=== PATIENT | female | born 1935 | race African-American/Black ===

== ENCOUNTER 2024-09-14 19:02 | Emergency (ER) | payer MEDICARE ==
[~2024-09-14] VITALS: Ht 167.6 cm; Wt 86.2 kg
[2024-09-14 19:04] VITALS: BP 158/78; PULSE 74; RESP 16; TEMP 97.8; O2SAT 98
[2024-09-14] MEDS ORDERED: NAPR-1704 PO (21:12)
[2024-09-15 00:04] VITALS: BP 133/70; PULSE 90; RESP 14; O2SAT 96
== END 2024-09-15 00:28 | disposition home or self-care (01) ==
LOC: MED 19:02
DX: S12.600A Unspecified displaced fracture of seventh cervical vertebra, initial encounter for closed fracture (principal); I10 Essential (primary) hypertension; E78.00 Pure hypercholesterolemia, unspecified; Z79.899 Other long term (current) drug therapy; Z88.0 Allergy status to penicillin; Z88.6 Allergy status to analgesic agent; W18.39XA Other fall on same level, initial encounter; Y92.89 Other specified places as the place of occurrence of the external cause; Y93.89 Activity, other specified; Y99.8 Other external cause status
CPT/HCPCS: 72050; 99283